=== PATIENT | female | born 1985 | race Caucasian/White ===

== ENCOUNTER 2018-10-06 09:50 | Outpatient (CLI) | payer OTHER ==
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
== END 2018-10-06 09:51 | disposition home or self-care (01) ==
LOC: MADRAD 09:50
PROVIDERS: ATTEND Family Medicine
DX: H57.12 Ocular pain, left eye (principal); M25.561 Pain in right knee; M79.645 Pain in left finger(s)
CPT/HCPCS: 70150